=== PATIENT | female | born 1995 | race Caucasian/White ===

== ENCOUNTER 2016-09-18 20:50 | Emergency (ER) | payer BC ==
[2016-09-18 21:12] VITALS: BP 133/76
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
== END 2016-09-18 22:48 | disposition home or self-care (01) ==
LOC: FB.ED 20:50
DX: N76.0 Acute vaginitis (principal); F41.9 Anxiety disorder, unspecified; F32.9 Major depressive disorder, single episode, unspecified; E66.9 Obesity, unspecified
CPT/HCPCS: 81001; 87210; 99283

== ENCOUNTER 2016-11-01 07:09 | Emergency (ER) | payer BC ==
[2016-11-01 07:26] VITALS: BP 125/74
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
== END 2016-11-01 08:48 | disposition home or self-care (01) ==
LOC: FB.ED 07:09
DX: R39.9 Unspecified symptoms and signs involving the genitourinary system (principal); F41.9 Anxiety disorder, unspecified; F32.9 Major depressive disorder, single episode, unspecified; E66.9 Obesity, unspecified; Z68.30 Body mass index [BMI] 30.0-30.9, adult
CPT/HCPCS: 81001; 87086; 87491; 87591; 99283

== ENCOUNTER 2019-06-20 16:13 | Emergency (ER) | payer OTHER ==
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
[2019-06-20 19:21] VITALS: BP 139/90; PULSE 97
== END 2019-06-20 18:56 | disposition home or self-care (01) ==
LOC: FB.ED 16:13
DX: S05.92XA Unspecified injury of left eye and orbit, initial encounter (principal); Z77.098 Contact with and (suspected) exposure to other hazardous, chiefly nonmedicinal, chemicals
CPT/HCPCS: 99000; 99283

== ENCOUNTER 2019-08-09 22:13 | Emergency (ER) | payer OTHER ==
[2019-08-09] MEDS ORDERED: Fluconazole 150 MG Tab PO ONE (22:50)
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
[2019-08-09] MEDS ORDERED: Fluconazole 100 MG Tab PO ONE (23:30)
[2019-08-12 22:18] VITALS: BP 129/94; PULSE 80
== END 2019-08-09 23:20 | disposition home or self-care (01) ==
LOC: FB.ED 22:13
DX: B37.3 Candidiasis of vulva and vagina (principal); E66.9 Obesity, unspecified; Z68.38 Body mass index [BMI] 38.0-38.9, adult
CPT/HCPCS: 99282; A9270

== ENCOUNTER 2020-08-14 22:09 | Emergency (ER) | payer BC ==
[2020-08-14] MEDS ORDERED: Sodium Chloride 0.9% 10 ML Syringe FLUSH PRN (22:15)
[2020-08-14] MEDS ORDERED: Thiamine 200 MG/2 ML MDV IVPUSH ONE (22:16)
[2020-08-14] MEDS ORDERED: LORazepam 2 MG/ML SDV IVPUSH ONE ×2 (22:18→22:29)
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
[2020-08-14] MEDS ORDERED: Haloperidol Lactate 5 MG/ML SDV IM ONE ×2 (22:36→23:01)
[2020-08-14] MEDS ORDERED: Haloperidol Lactate 5 MG/ML SDV ONE (22:37)
[2020-08-14 22:44] LABS: ACETAMINOPHEN < 2 ug/mL (<2)
[2020-08-14] MEDS: Sodium Chloride 0.9% 1,000 ML IV SCH (23:00)
[2020-08-15] MEDS ORDERED: Ondansetron 4 MG/2 ML SDV IVPUSH ONE (00:08)
[2020-08-15] MEDS: Sodium Chloride 0.9% 1,000 ML IV SCH (00:32)
[2020-08-15] MEDS ORDERED: Sodium Chloride 0.9% 1,000 ML IV SCH (01:30)
[2020-08-15 03:58] VITALS: BP 135/76; PULSE 116
== END 2020-08-15 05:24 | disposition home or self-care (01) ==
LOC: FB.ED 22:09
DX: S09.90XA Unspecified injury of head, initial encounter (principal); F10.120 Alcohol abuse with intoxication, uncomplicated; Y90.8 Blood alcohol level of 240 mg/100 ml or more; E66.9 Obesity, unspecified; W10.9XXA Fall (on) (from) unspecified stairs and steps, initial encounter
CPT/HCPCS: 36415; 70450; 72125; 80053; 80143; 80179; 80305-QW; 80307; 81001; 81025; 85025; 96372; 96374; 96375; 99283; 99285-25; J1630; J2060; J3411; J7030

== ENCOUNTER 2022-05-21 20:28 | Emergency (ER) | payer OTHER ==
[2022-05-21] MEDS ORDERED: Acetaminophen 500 MG Tab PO ONE (21:07)
[2022-05-21] MEDS ORDERED: cefTRIAXone 1 GM Vial IM ONE (21:36)
[2022-05-21] MEDS ORDERED: Doxycycline 100 MG Tab PO ONE (21:37)
[2022-05-22 02:06] VITALS: BP 154/79; PULSE 64
== END 2022-05-21 22:25 | disposition home or self-care (01) ==
LOC: FB.ED 20:28
DX: N39.0 Urinary tract infection, site not specified (principal); R31.9 Hematuria, unspecified; E66.9 Obesity, unspecified; Z68.41 Body mass index [BMI] 40.0-44.9, adult
CPT/HCPCS: 36415; 81001; 81025; 85027; 86140; 87086; 96372; 99283; A9270; J0696

== ENCOUNTER 2024-12-26 10:57 | Emergency (ER) | payer BC ==
[2024-12-26 11:41] LABS: BASOPHILS ABSOLUTE AUTO 0.0 x10-3/uL (0.0-0.1); BASOPHILS PERCENT AUTO 0.4 % (0.2-1.5); EOSINOPHILS ABSOLUTE AUTO 0.2 x10-3/uL (0.0-0.8); EOSINOPHILS PERCENT AUTO 2.0 % (0.6-8.1); LYMPHOCYTES ABSOLUTE AUTO 3.6 x10-3/uL (1.0-4.4); LYMPHOCYTES PERCENT AUTO 45.7 % (18.4-52.1); MEAN PLATELET VOLUME 8.8 fL (7.1-12.4); MONOCYTES ABSOLUTE AUTO 0.5 x10-3/uL (0.3-1.0); MONOCYTES PERCENT AUTO 6.6 % (4.4-15.7); NEUTROPHILS ABSOLUTE AUTO 3.6 x10-3/uL (1.5-6.3); NEUTROPHILS PERCENT AUTO 45.3 % (30.8-76.2); PLATELET COUNT,PLT 207 x10(3)uL (151-488); RED BLOOD CELL COUNT 4.49 x10(6)uL (3.60-5.20); RED CELL DISTRIBUTION WIDTH 13.3 % (12.3-16.5); WHITE BLOOD CELL COUNT,WBC 7.9 x10-3/uL (3.0-10.3)
[2024-12-26 11:42] LABS: BLOOD UREA NITROGEN,BUN 18 mg/dL (7-18); CARBON DIOXIDE,CO2 28 mmol/L (21-32); CHLORIDE,CL 104 mmol/L (100-110); CREATININE 0.9 mg/dL (0.55-1.02); EST CRCL DRUG DOSING (CG) 82.99 mL/min; ESTIMATED GFR 89 mL/min (>60); GLUCOSE RANDOM 117 mg/dL (80-116); POTASSIUM,K 3.3 mmol/L (3.5-5.3); SODIUM,NA 141 mmol/L (135-145)
[2024-12-26 11:49] LABS: A/G RATIO 1.0; ALANINE AMINOTRANSFERASE,ALT 55 U/L (12-36); ASPARTATE AMNIOTRANSFERASE,AST 18 IU/L (5-25); BILIRUBIN TOTAL 0.4 mg/dL (0.1-1.3); PROTEIN TOTAL,TP 7.5 g/dL (6.0-8.0)
[2024-12-26 11:55] LABS: PRO B-TYPE NATRIUR PEPT,BNPPRO 19 pg/mL (<=125)
[2024-12-26] MEDS: LORazepam 2 MG/ML SDV IM STA (12:02)
[2024-12-26] MEDS: Potassium Chloride 20 MEQ Tab.ER PO SCH (12:02)
[2024-12-26 13:21] VITALS: BP 115/81; PULSE 77
== END 2024-12-26 12:52 | disposition home or self-care (01) ==
LOC: FB.ED 10:57
DX: F41.0 Panic disorder [episodic paroxysmal anxiety] (principal); E87.6 Hypokalemia; E66.9 Obesity, unspecified; Z79.899 Other long term (current) drug therapy; Z68.41 Body mass index [BMI] 40.0-44.9, adult
CPT/HCPCS: 36415; 71045; 80053; 83880; 84484; 85025; 85379; 93005; 93010; 96372; 99284; 99285; A9270-GY; J2060